=== PATIENT | female | born 2000 | race African-American/Black ===

== ENCOUNTER → 2023-09-30 | Outpatient (CLI) | payer OTHER | LOC: MHCPAIN 13:17 | DX: M25.551 Pain in right hip (principal); M25.552 Pain in left hip; M70.61 Trochanteric bursitis, right hip; M70.62 Trochanteric bursitis, left hip | CPT/HCPCS: G0463 ==

== ENCOUNTER → 2023-10-05 | Outpatient (CLI) | payer OTHER ==
[~2023-10-05] MED LIST: Lidocaine PF 1% (10 MG/ML) 5 ML VIAL ONE; Triamcinolone 40 MG/ML 1 ML VIAL ONE
== END ==
LOC: MHCPAIN 12:41
DX: M70.62 Trochanteric bursitis, left hip (principal)
CPT/HCPCS: J0665; J3301

== ENCOUNTER → 2023-11-06 | Outpatient (CLI) | payer OTHER | LOC: MHCPAIN 09:27 | DX: M25.551 Pain in right hip (principal); M25.552 Pain in left hip; M70.61 Trochanteric bursitis, right hip | CPT/HCPCS: G0463 ==

== ENCOUNTER → 2023-12-08 | Outpatient (CLI) | payer OTHER ==
[~2023-12-08] MED LIST changes: +Gadoterate 5 ML VIAL IV ONE; +Iohexol 300 - 10 ML VIAL IV ONE; -Lidocaine PF 1% (10 MG/ML) 5 ML VIAL ONE; -Triamcinolone 40 MG/ML 1 ML VIAL ONE
== END ==
LOC: COL.RAD 07:36
DX: M24.151 Other articular cartilage disorders, right hip (principal)
CPT/HCPCS: A9575; Q9967

== ENCOUNTER → 2023-12-09 | Outpatient (CLI) | payer OTHER | LOC: COL.RAD 07:55 | DX: M24.159 Other articular cartilage disorders, unspecified hip (principal) | CPT/HCPCS: A9575; Q9967 ==

== ENCOUNTER → 2023-12-21 | Outpatient (CLI) | payer OTHER | LOC: MHCPAIN 09:46 | DX: M25.451 Effusion, right hip (principal); M25.452 Effusion, left hip; M70.61 Trochanteric bursitis, right hip; M25.852 Other specified joint disorders, left hip | CPT/HCPCS: G0463 ==